=== PATIENT | female | born 1990 | race Caucasian/White ===

== ENCOUNTER 2020-07-08 09:30 | Emergency (ER) | payer OTHER, SELFPAY ==
[~2020-07-08] VITALS: Ht 167.6 cm; Wt 113.4 kg
[2020-07-08 09:31] VITALS: Ht 167.6 cm; Wt 113.4 kg
[2020-07-08 10:01] VITALS: BP 138/88
== END 2020-07-08 10:01 | disposition home or self-care (01) ==
LOC: ED 09:30
DX: M79.10 Myalgia, unspecified site (principal); J02.9 Acute pharyngitis, unspecified; Z20.828 Contact with and (suspected) exposure to other viral communicable diseases
CPT/HCPCS: U0003-CS